=== PATIENT | male | born 1985 | race Caucasian/White ===

== ENCOUNTER 2018-04-26 08:47 | Inpatient (IN) | payer OTHER ==
[2018-04-26 09:26] VITALS: BMI 24.5
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
[2018-04-26] MEDS ORDERED: MAG HYDROX/AL HYDROX/SIMETH 30 ML UNIT-DOSE CUP PO PRN (10:28)
[2018-04-26] MEDS ORDERED: NICOTINE POLACRILEX 2 MG GUM BUC PRN (10:28)
[2018-04-26] MEDS ORDERED: MENTHOL/PHENOL 1 EACH UD MM PRN (10:28)
[2018-04-26] MEDS ORDERED: MAGNESIUM CITRATE 300 ML BOTTLE PO PRN (10:28)
[2018-04-26] MEDS ORDERED: P-EPHED 60MG/TRIPROLIDI 2.5MG TABLET PO PRN (10:28)
[2018-04-26] MEDS ORDERED: IBUPROFEN 400 MG TABLET (FP) PO PRN (10:28)
[2018-04-26] MEDS ORDERED: guaiFENesin/D-METHORPHAN HB 10 ML UNIT-DOSE CUPS PO PRN (10:28)
[2018-04-26] MEDS ORDERED: ACETAMINOPHEN 325 MG TABLET (FP) PO PRN (10:28)
[2018-04-26] MEDS ORDERED: MAGNESIUM HYDROX 2400MG/30ML ORAL SUSPENSION 30 ML CUP PO PRN (10:28)
[2018-04-26] MEDS ORDERED: METHADONE HCL 10 MG TABLET (FOR DETOX USE ONLY) PO ONE ×2 (11:30→23:00)
[2018-04-26] MEDS: diazePAM 5 MG TABLET PO SCH ×2 (14:00→22:10)
[2018-04-26] MEDS: diazePAM 5 MG TABLET PO PRN (18:43)
[2018-04-26] MEDS ORDERED: MELATONIN 5 MG TABLETS PO PRN (22:00)
[2018-04-26] MEDS: THIAMINE HCL 100 MG TABLET (FP) PO SCH (22:10)
[2018-04-27] MEDS: diazePAM 5 MG TABLET PO SCH ×3 (07:00→22:39)
[2018-04-27] MEDS ORDERED: METHADONE HCL 10 MG TABLET (FOR DETOX USE ONLY) PO SCH (10:00)
[2018-04-27] MEDS: PRENATAL VITAMINS W/ FOLIC ACID TABLET (FP) PO SCH (10:19)
[2018-04-27 10:22] LABS: HEMATOCRIT 50.7 % (35.4-49); HEMOGLOBIN 16.8 GM/dL (11.7-16.9); MCH 30.2 pg (25.7-33.7); MCHC 33.2 g/dl (32.0-35.9); MEAN CELL VOLUME 91.2 fl (80-96); MEAN PLT VOLUME 9.1 fl (7.5-11.1); RBC 5.56 M/mm3 (4.00-5.60); RDW 15.2 % (11.9-15.9); WHITE BLOOD COUNT 5.4 K/mm3 (4.0-10.0)
--- NOTE | 2018-04-27 10:57 | PN ---
[facility] COWS - Scale Resting Pulse: 1= [place] 81-100 Sweatin= Chills/Flushing Restless Observation: 0= Sits Still Pupil Size: 0= Normal to Room Light Bone or Joint Aches: 2= Severe Diffuse Aches Runny Nose/ Eye Tearin= None GI Upset > 30mins: 2= Nausea/Diarrhea Tremor Observation of Outstretched Hands: 2= Slight Tremor Visible Yawning Observation: 1= 1-2x During Session Anxiety or Irritability: 2=Irritable/Anxious Goose Flesh Skin: 3=Piloerection COWS Score: 14 B[facility] Progress Note (SOAP) Subjective: Anxious, Tremors, Body Aches, Nausea. Objective: PATIENT A & O X 3. IN NO ACUTE DISTRESS. 04/27/18 10:58 Vital Signs Temperature 97.9 F 04/27/18 09:16 Pulse Rate 82 04/27/18 09:16 Respiratory Rate 18 04/27/18 09:16 Blood Pressure 95/57 L 04/27/18 09:16 O2 Sat by Pulse Oximetry (%) ADMISSION LAB RESULTS PENDING. 04/27/18 10:58 Assessment: 04/27/18 10:58 WITHDRAWAL SYMPTOMS. Plan: CONTINUE DETOX. INCREASE DAILY PO FLUID INTAKE.
[2018-04-27 11:04] LABS: ALBUMIN 4.3 g/dl (3.4-5.0); ALK PHOS 106 U/L (45-117); ANION GAP 11 MMOL/L (8-16); BILIRUBIN,TOTAL 0.6 mg/dL (0.2-1); BLOOD UREA NITROGEN 9 mg/dL (7-18); CALCIUM 9.7 mg/dL (8.5-10.1); CHLORIDE 108 mmol/L (98-107); CO2 22 mmol/L (21-32); CREATININE 0.9 mg/dL (0.55-1.3); GLUCOSE,RANDOM 90 mg/dL (74-106); POTASSIUM 4.3 mmol/L (3.5-5.1); SGOT/AST 31 U/L (15-37); SGPT/ALT 33 U/L (13-61); SODIUM 142 mmol/L (136-145); TOT PROT 8.6 g/dl (6.4-8.2)
[2018-04-27 13:17] LABS: PLATELET COUNT 248 K/MM3 (134-434)
[2018-04-27] MEDS: diazePAM 5 MG TABLET PO PRN (18:39)
[2018-04-27] MEDS: THIAMINE HCL 100 MG TABLET (FP) PO SCH (22:39)
[2018-04-28] MEDS ORDERED: METHADONE HCL 5 MG TABLET (FOR DETOX USE ONLY) PO SCH (10:00)
[2018-04-28] MEDS ORDERED: diazePAM 5 MG TABLET PO SCH (10:00)
[2018-04-28] MEDS: PRENATAL VITAMINS W/ FOLIC ACID TABLET (FP) PO SCH (10:39)
[2018-04-28] MEDS ORDERED: ONDANSETRON *ODT* 4 MG TABLET SL PRN (10:49)
[2018-04-28] MEDS ORDERED: NICOTINE POLACRILEX 4 MG GUM BUC PRN (10:49)
--- NOTE | 2018-04-28 12:18 | PN ---
S CIWA - CIWA Score Nausea/Vomitin Muscle Tremors: None Anxiety: 4-Mod. Anxious/Guarded Agitation: 0-Normal Activity Paroxysmal Sweats: 3 Orientation: 0-Oriented Tacttile Disturbances: 2-Mild Itch/Numbness/Burn Auditory Disturbances: 4-Moderate Hallucination Visual Disturbances: 0-None Headache: 0-None Present CIWA-Ar Total Score: 16 [facility] COWS - Scale Resting Pulse: 1= [place] 81-100 Sweatin= Chills/Flushing Restless Observation: 0= Sits Still Pupil Size: 0= Normal to Room Light Bone or Joint Aches: 2= Severe Diffuse Aches Runny Nose/ Eye Tearin= None GI Upset > 30mins: 2= Nausea/Diarrhea Tremor Observation of Outstretched Hands: 0= None Yawning Observation: 2= >3x During Session Anxiety or Irritability: 2=Irritable/Anxious Goose Flesh Skin: 0=Smooth Skin COWS Score: 10 S Progress Note (SOAP) Subjective: Diarrhea, Nausea, Body Aches, Stomach Cramping, Sweating. Objective: 04/28/18 12:15 Vital Signs Temperature 96.8 F L 04/28/18 09:05 Pulse Rate 90 04/28/18 09:05 Respiratory Rate 16 04/28/18 09:05 Blood Pressure 111/80 04/28/18 09:05 O2 Sat by Pulse Oximetry (%) Laboratory Tests 04/27/18 04/27/18 04/27/18 06:00 06:00 06:00 WBC 5.4 RBC 5.56 Hgb 16.8 Hct 50.7 H MCV 91.2 MCH 30.2 MCHC 33.2 RDW 15.2 Plt Count 248 MPV 9.1 Sodium 142 Potassium 4.3 Chloride 108 H Carbon Dioxide 22 Anion Gap 11 BUN 9 Creatinine 0.9 Creat Clearance w eGFR > 60 Random Glucose 90 Calcium 9.7 Total Bilirubin 0.6 AST 31 ALT 33 Alkaline Phosphatase 106 Total Protein 8.6 H Albumin 4.3 RPR Titer Nonreactive LABS NOTED. Assessment: 04/28/18 12:16 WITHDRAWAL SYMPTOMS. Plan: CONTINUE DETOX. INCREASE DAILY PO FLUID INTAKE. ENCOURAGE AMBULATION.
[2018-04-28] MEDS ORDERED: LOPERAMIDE HCL 2 MG CAPSULE PO PRN (12:19)
[2018-04-28 13:34] VITALS: BP 118/78; PULSE 114; TEMP 98.2
--- NOTE | 2018-04-28 15:59 | DS ---
[facility] Detox Discharge Summary Admission Date: 04/26/18 Discharge Date: 04/28/18 - History Present History: Opioid Dependence, Sedative Dependence Additional Comments: PATIENT DOES NOT WISH TO REMAIN TO COMPLETE DETOX REGIMEN. RISKS OF LEAVING DETOX UNIT AGAINST MEDICAL ADVICE AND PRIOR TO COMPLETION OF DETOX REGIMEN EXPLAINED TO PATIENT. PATIENT ADVISED TO GO IMMEDIATELY TO NEAREST ER SHOULD ANY INTOLERABLE DETOX SYMPTOMS DEVELOP AT ANY TIME. PATIENT VERBALIZED UNDERSTANDING OF ALL INFORMATION / RECOMMENDATIONS PRESENTED TO HIM PRIOR TO DEPARTURE FROM DETOX UNIT. PATIENT LEFT DETOX UNIT IN STABLE MEDICAL CONDITION. Pertinent Past History: Nicotine Dependence. - Physical Exam Results Vital Signs: Vital Signs Temperature 98.2 F 04/28/18 13:34 Pulse Rate 114 H 04/28/18 13:34 Respiratory Rate 16 04/28/18 13:34 Blood Pressure 118/78 04/28/18 13:34 O2 Sat by Pulse Oximetry (%) Pertinent Admission Physical Exam Findings: WITHDRAWAL SYMPTOMS. Laboratory Tests 04/27/18 04/27/18 04/27/18 06:00 06:00 06:00 WBC 5.4 RBC 5.56 Hgb 16.8 Hct 50.7 H MCV 91.2 MCH 30.2 MCHC 33.2 RDW 15.2 Plt Count 248 MPV 9.1 Sodium 142 Potassium 4.3 Chloride 108 H Carbon Dioxide 22 Anion Gap 11 BUN 9 Creatinine 0.9 Creat Clearance w eGFR > 60 Random Glucose 90 Calcium 9.7 Total Bilirubin 0.6 AST 31 ALT 33 Alkaline Phosphatase 106 Total Protein 8.6 H Albumin 4.3 RPR Titer Nonreactive LABS NOTED. - Treatment Hospital Course: Detoxed Safely - Medication Discharge Medications: Ambulatory Orders Bupropion HCl [Wellbutrin -] 150 mg PO BID 04/26/18 Quetiapine Fumarate [Seroquel] 100 tab PO HS 04/26/18 - Diagnosis (1) Opiate dependence Status: Acute Qualifiers: Substance use status: in withdrawal Qualified Code(s): F11.23 - Opioid dependence with withdrawal (2) Sedative hypnotic or anxiolytic dependence Status: Acute (3) Cannabis dependence Status: Chronic (4) Nicotine dependence Status: Chronic Qualifiers: Nicotine product type: cigarettes Substance use status: uncomplicated Qualified Code(s): F17.210 - Nicotine dependence, cigarettes, uncomplicated - AMA Did Patient Leave Against Medical Advice: Yes (PATIENT DID NOT WISH TO REMAIN TO COMPLETE DETOX REGIMEN.)
[2018-04-29] MEDS ORDERED: METHADONE HCL 10 MG TABLET (FOR DETOX USE ONLY) PO SCH (10:00)
[2018-04-30] MEDS ORDERED: METHADONE HCL 5 MG TABLET (FOR DETOX USE ONLY) PO SCH (06:00)
[2018-04-30] MEDS ORDERED: diazePAM 5 MG TABLET PO SCH (10:00)
== END 2018-04-28 14:12 | disposition left against medical advice (07) | DRG 770 ==
LOC: YASAS 08:47 → Y6N 11:12
PROVIDERS: ADMIT Neuromusculoskeletal Medicine & OMM; ATTEND Neuromusculoskeletal Medicine & OMM
PROC: HZ2ZZZZ Detoxification Services for Substance Abuse Treatment (ICD-10-PCS; principal; 2018-04-26)
DX: F11.23 Opioid dependence with withdrawal (principal); F13.20 Sedative, hypnotic or anxiolytic dependence, uncomplicated; F12.20 Cannabis dependence, uncomplicated; F17.210 Nicotine dependence, cigarettes, uncomplicated
CPT/HCPCS: 36415; 80053; 85027; 86593; Q0162